=== PATIENT | female | born 1980 | race Caucasian/White ===

== ENCOUNTER 2019-01-02 16:13 | Inpatient (IN) | payer OTHER ==
[2019-01-02] MEDS: BELLADONNA/PHENOBARBITAL TAB PO (18:01)
[2019-01-02] MEDS: LIDOCAINE/MYLANTA 40 ML BTL PO (18:01)
[2019-01-02] MEDS: PYRIDOXINE 50 MG TAB PO (18:11)
[2019-01-02] MEDS: SOD CHLORIDE 0.9% 1,000 ML IV ×2 (18:12→20:51)
[2019-01-02 18:34] LABS: ADD MAN DIFF? NO
[2019-01-02 18:37] LABS: BASOPHILS % 0.2 % (0.0-2.0); HEMATOCRIT 33.2 % (37.0-47.0); HEMOGLOBIN 11.5 g/dl (12.0-16.0); LYMPHOCYTES # 1.1 10^3/ul (0.8-2.9); LYMPHOCYTES % 8.5 % (15.0-51.0); MEAN CORPUSCULAR HEMOGLOBIN 29.1 pg (29.0-33.0); MEAN CORPUSCULAR HGB CONC 34.6 g/dl (32.0-37.0); MEAN CORPUSCULAR VOLUME 84.1 fl (82.0-101.0); MEAN PLATELET VOLUME 11.6 fl (7.4-10.4); MONOCYTE # 0.5 10^3/ul (0.3-0.9); MONOCYTES % 4.3 % (0.0-11.0); NEUTROPHIL # 10.9 10^3/ul (1.6-7.5); NEUTROPHILS % 86.2 % (39.0-77.0); PLATELET COUNT 198 10^3/UL (140-415); RED BLOOD COUNT 3.95 10^6/ul (4.20-5.40); RED CELL DISTRIBUTION WIDTH 12.9 % (11.5-14.5)
[2019-01-02 18:37] LABS: WHITE BLOOD COUNT 12.6 10^3/ul (4.8-10.8)
[2019-01-02 18:46] LABS: ADD UMIC YES; UR ASCORBIC ACID NEGATIVE (NEGATIVE); UR BILIRUBIN (Dip) NEGATIVE (NEGATIVE); UR BLOOD (Dip) 2+ mg/dL (NEGATIVE); UR CLARITY SLIGHTLY CLOUDY (CLEAR); UR COLOR AMBER (YELLOW); UR GLUCOSE (Dip) 1+ mg/dL (NEGATIVE); UR KETONES (Dip) 2+ mg/dL (NEGATIVE); UR LEUKOCYTE ESTERASE (Dip) NEGATIVE Leu/ul (NEGATIVE); UR MUCUS MODERATE /HPF (NONE SEEN); UR NITRITE (Dip) NEGATIVE (NEGATIVE); UR RBC 54 /HPF (0-5); UR SQUAMOUS EPITHELIAL CELL FEW /HPF (FEW); UR TOTAL PROTEIN (Dip) 2+ mg/dl (NEGATIVE); UR UROBILINOGEN (Dip) NEGATIVE (NEGATIVE); UR WBC 5 /HPF (0-5)
[2019-01-02 18:59] LABS: ALANINE AMINOTRANSFERASE 43 IU/L (13-69); ALBUMIN 3.9 g/dl (3.3-4.9); ALBUMIN/GLOBULIN RATIO 1.05; ALKALINE PHOSPHATASE 35 IU/L (42-121); ANION GAP 11 (5-13); ASPARTATE AMINO TRANSFERASE 52 IU/L (15-46); BILIRUBIN,INDIRECT 0.4 mg/dl (0-1.1); BILIRUBIN,TOTAL 0.4 mg/dl (0.2-1.3); BLOOD UREA NITROGEN 8 mg/dl (7-20); CALCIUM 8.8 mg/dl (8.4-10.2); CARBON DIOXIDE 19 mmol/L (21-31); CHLORIDE 109 mmol/L (97-110); CREATININE 0.49 mg/dl (0.44-1.00); Estimated GFR > 60 mL/min (>60); GLUCOSE 139 mg/dl (70-220); LIPASE 27 U/L (23-300); POTASSIUM 3.8 mmol/L (3.5-5.1); SODIUM 139 mmol/L (135-144); TOTAL PROTEIN 7.6 g/dl (6.1-8.1)
[2019-01-02] MEDS ORDERED: ONDANSETRON 4 MG INJ IV (19:06)
[2019-01-02] MEDS: METOCLOPRAMIDE 10 MG INJ IV (19:40)
[2019-01-02] MEDS: FAMOTIDINE 20 MG INJ IV (20:55)
[2019-01-02] MEDS: AL HYDROX/MG HYDROX/SIMETH 30 ML CUP PO (22:02)
[2019-01-03] MEDS ORDERED: PROMETHAZINE (1.25 MG/ML) 5 ML CUP PO (01:30)
[2019-01-03] MEDS ORDERED: ONDANSETRON 4 MG INJ IV ×2 (01:30→18:00)
[2019-01-03] MEDS: METOCLOPRAMIDE 10 MG INJ IV ×4 (02:07→23:43)
[2019-01-03] MEDS: AL HYDROX/MG HYDROX/SIMETH 30 ML CUP PO ×2 (05:37→17:46)
[2019-01-03 05:48] LABS: ADD MAN DIFF? NO
[2019-01-03 05:52] LABS: BASOPHILS % 0.1 % (0.0-2.0); HEMOGLOBIN 10.6 g/dl (12.0-16.0); LYMPHOCYTES # 1.3 10^3/ul (0.8-2.9); LYMPHOCYTES % 9.5 % (15.0-51.0); MEAN CORPUSCULAR HEMOGLOBIN 29.1 pg (29.0-33.0); MEAN CORPUSCULAR HGB CONC 35.3 g/dl (32.0-37.0); MEAN CORPUSCULAR VOLUME 82.4 fl (82.0-101.0); MONOCYTE # 0.6 10^3/ul (0.3-0.9); MONOCYTES % 4.2 % (0.0-11.0); NEUTROPHIL # 12.1 10^3/ul (1.6-7.5); NEUTROPHILS % 85.6 % (39.0-77.0); PLATELET COUNT 216 10^3/UL (140-415); RED BLOOD COUNT 3.64 10^6/ul (4.20-5.40); RED CELL DISTRIBUTION WIDTH 13.1 % (11.5-14.5)
[2019-01-03 05:52] LABS: WHITE BLOOD COUNT 14.2 10^3/ul (4.8-10.8)
[2019-01-03 06:27] LABS: ALANINE AMINOTRANSFERASE 79 IU/L (13-69); ALBUMIN 3.5 g/dl (3.3-4.9); ALBUMIN/GLOBULIN RATIO 1.09; ALKALINE PHOSPHATASE 38 IU/L (42-121); ANION GAP 10 (5-13); ASPARTATE AMINO TRANSFERASE 92 IU/L (15-46); BILIRUBIN,INDIRECT 0.4 mg/dl (0-1.1); BILIRUBIN,TOTAL 0.4 mg/dl (0.2-1.3); BLOOD UREA NITROGEN 7 mg/dl (7-20); CALCIUM 8.6 mg/dl (8.4-10.2); CARBON DIOXIDE 18 mmol/L (21-31); CHLORIDE 108 mmol/L (97-110); CHOL/HDL RATIO 2.6 RATIO; CHOLESTEROL 183 mg/dl (100-200); CREATININE 0.49 mg/dl (0.44-1.00); Estimated GFR > 60 mL/min (>60); GLUCOSE 133 mg/dl (70-220); HDL CHOLESTEROL 70 mg/dl (34-82); LDL CHOLESTEROL,CALCULATED 96 mg/dl; MAGNESIUM 2.3 mg/dl (1.7-2.5); POTASSIUM 3.3 mmol/L (3.5-5.1); SODIUM 136 mmol/L (135-144); TOTAL PROTEIN 6.7 g/dl (6.1-8.1); TRIGLYCERIDES 84 mg/dl (0-149)
[2019-01-03 06:56] LABS: HEMOGLOBIN A1C 5.2 % (0-5.9)
[2019-01-03] MEDS: ACETAMINOPHEN 325 MG TAB PO (10:19)
[2019-01-03] MEDS: FAMOTIDINE 20 MG INJ IV ×2 (10:19→21:21)
[2019-01-03] MEDS: DEXTROSE 5%-0.45% NACL 1,000 ML IV (18:36)
[2019-01-03] MEDS: MULTIVITAMINS 10 ML, THIAMINE 100 MG, FOLIC ACID 1 MG in SOD CHLORIDE 0.9% 1,000 ML IVPB (20:46)
[2019-01-03] MEDS: PYRIDOXINE 50 MG TAB PO (22:00)
[2019-01-04 05:46] LABS: ADD MAN DIFF? NO; HAAIG REFLEX REFLEX FILED
[2019-01-04 05:47] LABS: BASOPHILS % 0.3 % (0.0-2.0); EOSINOPHILS % 0.1 % (0.0-7.0); HEMATOCRIT 29.7 % (37.0-47.0); HEMOGLOBIN 10.4 g/dl (12.0-16.0); LYMPHOCYTES # 1.6 10^3/ul (0.8-2.9); LYMPHOCYTES % 16.1 % (15.0-51.0); MEAN CORPUSCULAR HEMOGLOBIN 29.1 pg (29.0-33.0); MEAN CORPUSCULAR VOLUME 83.2 fl (82.0-101.0); MEAN PLATELET VOLUME 11.6 fl (7.4-10.4); MONOCYTE # 0.5 10^3/ul (0.3-0.9); MONOCYTES % 5.4 % (0.0-11.0); NEUTROPHIL # 7.4 10^3/ul (1.6-7.5); PLATELET COUNT 196 10^3/UL (140-415); RED BLOOD COUNT 3.57 10^6/ul (4.20-5.40); RED CELL DISTRIBUTION WIDTH 12.8 % (11.5-14.5)
[2019-01-04 05:47] LABS: WHITE BLOOD COUNT 9.7 10^3/ul (4.8-10.8)
[2019-01-04 06:26] LABS: PHOSPHORUS 2.2 mg/dl (2.5-4.9)
[2019-01-04 06:26] LABS: LIPASE 43 U/L (23-300); MAGNESIUM 2.2 mg/dl (1.7-2.5)
[2019-01-04 06:40] LABS: ALANINE AMINOTRANSFERASE 204 IU/L (13-69); ALBUMIN 3.2 g/dl (3.3-4.9); ALBUMIN/GLOBULIN RATIO 1.03; ALKALINE PHOSPHATASE 37 IU/L (42-121); ANION GAP 10 (5-13); ASPARTATE AMINO TRANSFERASE 161 IU/L (15-46); BILIRUBIN,INDIRECT 0.5 mg/dl (0-1.1); BILIRUBIN,TOTAL 0.5 mg/dl (0.2-1.3); BLOOD UREA NITROGEN 4 mg/dl (7-20); CALCIUM 7.9 mg/dl (8.4-10.2); CARBON DIOXIDE 19 mmol/L (21-31); CHLORIDE 105 mmol/L (97-110); CREATININE 0.43 mg/dl (0.44-1.00); Estimated GFR > 60 mL/min (>60); GLUCOSE 122 mg/dl (70-220); SODIUM 134 mmol/L (135-144); TOTAL PROTEIN 6.3 g/dl (6.1-8.1)
[2019-01-04 07:16] LABS: HEPATITIS B SURFACE ANTIGEN NEGATIVE (NEGATIVE)
[2019-01-04] MEDS: DEXTROSE 5%-0.45% NACL 1,000 ML IV ×2 (07:20→20:40)
[2019-01-04 07:34] LABS: HEPATITIS B CORE ANTIBODY NEGATIVE (NEGATIVE); HEPATITIS C VIRAL ANTIBODY NEGATIVE (NEGATIVE)
[2019-01-04] MEDS: FAMOTIDINE 20 MG INJ IV ×2 (08:52→21:47)
[2019-01-04] MEDS: PYRIDOXINE 50 MG TAB PO (08:52)
[2019-01-04] MEDS: MULTIVITAMINS 10 ML, THIAMINE 100 MG, FOLIC ACID 1 MG in SOD CHLORIDE 0.9% 1,000 ML IVPB (08:53)
[2019-01-04] MEDS: PROCHLORPERAZINE 10 MG INJ IM ×2 (13:51→21:51)
[2019-01-04] MEDS ORDERED: BISACODYL (EC) 5 MG TAB PO (15:00)
[2019-01-04] MEDS ORDERED: DOCUSATE SODIUM 100 MG CAP PO (15:00)
[2019-01-04] MEDS: POTASSIUM CHLORIDE 100 ML IVPB (17:29)
[2019-01-05] MEDS: DEXTROSE 5%-0.45% NACL 1,000 ML IV ×2 (02:41→23:20)
[2019-01-05 05:44] LABS: ADD MAN DIFF? NO
[2019-01-05 05:47] LABS: WHITE BLOOD COUNT 11.6 10^3/ul (4.8-10.8)
[2019-01-05 05:47] LABS: BASOPHILS % 0.3 % (0.0-2.0); EOSINOPHILS % 0.2 % (0.0-7.0); HEMATOCRIT 35.1 % (37.0-47.0); HEMOGLOBIN 12.4 g/dl (12.0-16.0); LYMPHOCYTES # 2.3 10^3/ul (0.8-2.9); LYMPHOCYTES % 20.1 % (15.0-51.0); MEAN CORPUSCULAR HEMOGLOBIN 28.5 pg (29.0-33.0); MEAN CORPUSCULAR HGB CONC 35.3 g/dl (32.0-37.0); MEAN CORPUSCULAR VOLUME 80.7 fl (82.0-101.0); MEAN PLATELET VOLUME 11.8 fl (7.4-10.4); MONOCYTE # 0.6 10^3/ul (0.3-0.9); MONOCYTES % 5.1 % (0.0-11.0); NEUTROPHIL # 8.5 10^3/ul (1.6-7.5); NEUTROPHILS % 73.4 % (39.0-77.0); PLATELET COUNT 254 10^3/UL (140-415); RED BLOOD COUNT 4.35 10^6/ul (4.20-5.40)
[2019-01-05] MEDS: PROCHLORPERAZINE 10 MG INJ IM ×3 (05:55→22:23)
[2019-01-05 06:17] LABS: ALANINE AMINOTRANSFERASE 444 IU/L (13-69); ALBUMIN 3.7 g/dl (3.3-4.9); ALBUMIN/GLOBULIN RATIO 1.02; ALKALINE PHOSPHATASE 51 IU/L (42-121); ANION GAP 12 (5-13); ASPARTATE AMINO TRANSFERASE 272 IU/L (15-46); BILIRUBIN,INDIRECT 0.5 mg/dl (0-1.1); BILIRUBIN,TOTAL 0.5 mg/dl (0.2-1.3); BLOOD UREA NITROGEN 5 mg/dl (7-20); CALCIUM 8.3 mg/dl (8.4-10.2); CARBON DIOXIDE 17 mmol/L (21-31); CHLORIDE 106 mmol/L (97-110); CREATININE 0.54 mg/dl (0.44-1.00); Estimated GFR > 60 mL/min (>60); GLUCOSE 114 mg/dl (70-220); SODIUM 135 mmol/L (135-144); TOTAL PROTEIN 7.3 g/dl (6.1-8.1)
[2019-01-05 06:41] LABS: POTASSIUM 3.1 mmol/L (3.5-5.1)
[2019-01-05 07:28] LABS: MAGNESIUM 2.1 mg/dl (1.7-2.5)
[2019-01-05 07:28] LABS: LIPASE 72 U/L (23-300)
[2019-01-05] MEDS: FAMOTIDINE 20 MG INJ IV (08:32)
[2019-01-05] MEDS: PYRIDOXINE 50 MG TAB PO (08:32)
[2019-01-05] MEDS: MULTIVITAMINS 10 ML, THIAMINE 100 MG, FOLIC ACID 1 MG in SOD CHLORIDE 0.9% 1,000 ML IVPB (08:33)
[2019-01-05] MEDS: METOCLOPRAMIDE 10 MG INJ IV ×2 (14:00→17:52)
[2019-01-05] MEDS: SUCRALFATE (100 MG/ML) 10ML CUP PO ×2 (17:52→21:00)
[2019-01-05] MEDS: POTASSIUM CHLORIDE 20 MEQ POWDER FOR ORAL SOLN PO ×2 (17:56→21:00)
[2019-01-05 19:41] LABS: HEPATITIS B SURFACE ANTIGEN NEGATIVE (NEGATIVE)
[2019-01-05 19:58] LABS: HEPATITIS C VIRAL ANTIBODY NEGATIVE (NEGATIVE)
[2019-01-05 19:58] LABS: HEPATITIS B SURFACE ANTIBODY NEGATIVE (NEGATIVE)
[2019-01-05] MEDS: FAMOTIDINE 20 MG TAB PO (21:00)
[2019-01-06] MEDS: METOCLOPRAMIDE 10 MG INJ IV ×4 (00:14→17:13)
[2019-01-06] MEDS: DEXTROSE 5%-0.45% NACL 1,000 ML IV ×2 (02:01→11:46)
[2019-01-06] MEDS: PANTOPRAZOLE (EC) 40 MG TAB PO (03:44)
[2019-01-06 05:18] LABS: ADD MAN DIFF? NO
[2019-01-06 05:23] LABS: BASOPHILS % 0.3 % (0.0-2.0); EOSINOPHILS % 0.4 % (0.0-7.0); HEMATOCRIT 31.6 % (37.0-47.0); HEMOGLOBIN 11.3 g/dl (12.0-16.0); LYMPHOCYTES # 1.6 10^3/ul (0.8-2.9); LYMPHOCYTES % 20.1 % (15.0-51.0); MEAN CORPUSCULAR HEMOGLOBIN 28.6 pg (29.0-33.0); MEAN CORPUSCULAR HGB CONC 35.8 g/dl (32.0-37.0); MEAN PLATELET VOLUME 11.6 fl (7.4-10.4); MONOCYTE # 0.4 10^3/ul (0.3-0.9); MONOCYTES % 5.6 % (0.0-11.0); NEUTROPHIL # 5.7 10^3/ul (1.6-7.5); PLATELET COUNT 190 10^3/UL (140-415); RED BLOOD COUNT 3.95 10^6/ul (4.20-5.40); RED CELL DISTRIBUTION WIDTH 12.9 % (11.5-14.5)
[2019-01-06 05:23] LABS: WHITE BLOOD COUNT 7.8 10^3/ul (4.8-10.8)
[2019-01-06] MEDS: PROCHLORPERAZINE 10 MG INJ IM ×2 (06:08→14:00)
[2019-01-06 06:09] LABS: ALANINE AMINOTRANSFERASE 447 IU/L (13-69); ALBUMIN 3.1 g/dl (3.3-4.9); ALKALINE PHOSPHATASE 42 IU/L (42-121); ANION GAP 10 (5-13); ASPARTATE AMINO TRANSFERASE 205 IU/L (15-46); BILIRUBIN,INDIRECT 0.4 mg/dl (0-1.1); BILIRUBIN,TOTAL 0.4 mg/dl (0.2-1.3); BLOOD UREA NITROGEN 4 mg/dl (7-20); CALCIUM 7.8 mg/dl (8.4-10.2); CARBON DIOXIDE 20 mmol/L (21-31); CHLORIDE 105 mmol/L (97-110); CREATININE 0.43 mg/dl (0.44-1.00); Estimated GFR > 60 mL/min (>60); GLUCOSE 115 mg/dl (70-220); SODIUM 135 mmol/L (135-144); TOTAL PROTEIN 6.2 g/dl (6.1-8.1)
[2019-01-06 06:21] LABS: POTASSIUM 2.8 mmol/L (3.5-5.1)
[2019-01-06] MEDS ORDERED: POTASSIUM CHLORIDE 100 ML IVPB (07:00)
[2019-01-06] MEDS: PYRIDOXINE 50 MG TAB PO (09:00)
[2019-01-06] MEDS: FAMOTIDINE 20 MG TAB PO ×2 (09:00→22:07)
[2019-01-06] MEDS: SUCRALFATE (100 MG/ML) 10ML CUP PO ×4 (09:00→22:33)
[2019-01-06] MEDS: MULTIVITAMINS 10 ML, THIAMINE 100 MG, FOLIC ACID 1 MG in SOD CHLORIDE 0.9% 1,000 ML IVPB (09:13)
[2019-01-06] MEDS: POTASSIUM CHLORIDE (SR) 20 MEQ TAB PO ×3 (09:41→22:33)
[2019-01-06 19:40] LABS: POTASSIUM 3.9 mmol/L (3.5-5.1)
[2019-01-06] MEDS: LABETALOL 100 MG TAB PO (21:00)
[2019-01-06] MEDS: D5W-0.45 NACL + KCL 40 MEQ 1,000 ML IV (22:28)
[2019-01-07] MEDS: METOCLOPRAMIDE 10 MG INJ IV ×2 (00:39→05:53)
[2019-01-07 05:50] LABS: ADD MAN DIFF? NO
[2019-01-07 05:52] LABS: BASOPHILS % 0.3 % (0.0-2.0); EOSINOPHILS # 0.1 10^3/ul (0.0-0.5); EOSINOPHILS % 0.8 % (0.0-7.0); HEMATOCRIT 35.9 % (37.0-47.0); HEMOGLOBIN 12.5 g/dl (12.0-16.0); LYMPHOCYTES # 2.4 10^3/ul (0.8-2.9); LYMPHOCYTES % 24.5 % (15.0-51.0); MEAN CORPUSCULAR HEMOGLOBIN 28.7 pg (29.0-33.0); MEAN CORPUSCULAR HGB CONC 34.8 g/dl (32.0-37.0); MEAN CORPUSCULAR VOLUME 82.5 fl (82.0-101.0); MEAN PLATELET VOLUME 11.5 fl (7.4-10.4); MONOCYTE # 0.6 10^3/ul (0.3-0.9); MONOCYTES % 5.7 % (0.0-11.0); NEUTROPHIL # 6.6 10^3/ul (1.6-7.5); PLATELET COUNT 230 10^3/UL (140-415); RED BLOOD COUNT 4.35 10^6/ul (4.20-5.40); RED CELL DISTRIBUTION WIDTH 13.2 % (11.5-14.5)
[2019-01-07 05:52] LABS: WHITE BLOOD COUNT 9.7 10^3/ul (4.8-10.8)
[2019-01-07 06:34] LABS: ALANINE AMINOTRANSFERASE 504 IU/L (13-69); ALBUMIN 3.7 g/dl (3.3-4.9); ALKALINE PHOSPHATASE 57 IU/L (42-121); ANION GAP 12 (5-13); ASPARTATE AMINO TRANSFERASE 171 IU/L (15-46); BILIRUBIN,INDIRECT 0.5 mg/dl (0-1.1); BILIRUBIN,TOTAL 0.5 mg/dl (0.2-1.3); BLOOD UREA NITROGEN 2 mg/dl (7-20); CALCIUM 8.8 mg/dl (8.4-10.2); CARBON DIOXIDE 19 mmol/L (21-31); CHLORIDE 106 mmol/L (97-110); CREATININE 0.46 mg/dl (0.44-1.00); Estimated GFR > 60 mL/min (>60); GLUCOSE 116 mg/dl (70-220); SODIUM 137 mmol/L (135-144); TOTAL PROTEIN 7.4 g/dl (6.1-8.1)
[2019-01-07] MEDS: LABETALOL 100 MG TAB PO ×3 (09:00→22:39)
[2019-01-07] MEDS: POTASSIUM CHLORIDE (SR) 20 MEQ TAB PO ×3 (11:14→22:37)
[2019-01-07] MEDS: SUCRALFATE (100 MG/ML) 10ML CUP PO ×4 (11:14→21:20)
[2019-01-07] MEDS: PYRIDOXINE 50 MG TAB PO (11:16)
[2019-01-07] MEDS: FAMOTIDINE 20 MG TAB PO ×2 (11:16→21:20)
[2019-01-07] MEDS ORDERED: METOCLOPRAMIDE 10 MG INJ IV (12:00)
[2019-01-07] MEDS: NACL 0.9% 3 ML SYG IV (13:51)
[2019-01-07 14:05] LABS: AMMONIA < 9 umol/l (9-30)
[2019-01-07 14:05] LABS: PROTIME 12.3 Sec (11.9-14.9)
[2019-01-07] MEDS: D5W-0.45 NACL + KCL 40 MEQ 1,000 ML IV (16:30)
[2019-01-07] MEDS ORDERED: METOCLOPRAMIDE 5 MG TAB PO (17:30)
[2019-01-08 06:13] LABS: ALANINE AMINOTRANSFERASE 414 IU/L (13-69); ALBUMIN 3.6 g/dl (3.3-4.9); ALBUMIN/GLOBULIN RATIO 1.09; ALKALINE PHOSPHATASE 49 IU/L (42-121); ANION GAP 9 (5-13); ASPARTATE AMINO TRANSFERASE 127 IU/L (15-46); BILIRUBIN,INDIRECT 0.5 mg/dl (0-1.1); BILIRUBIN,TOTAL 0.5 mg/dl (0.2-1.3); BLOOD UREA NITROGEN 3 mg/dl (7-20); CALCIUM 9.4 mg/dl (8.4-10.2); CARBON DIOXIDE 20 mmol/L (21-31); CHLORIDE 106 mmol/L (97-110); CREATININE 0.45 mg/dl (0.44-1.00); Estimated GFR > 60 mL/min (>60); GLUCOSE 107 mg/dl (70-220); POTASSIUM 4.6 mmol/L (3.5-5.1); SODIUM 135 mmol/L (135-144); TOTAL PROTEIN 6.9 g/dl (6.1-8.1)
[2019-01-08] MEDS: SUCRALFATE (100 MG/ML) 10ML CUP PO ×2 (09:47→15:20)
[2019-01-08] MEDS: FAMOTIDINE 20 MG TAB PO (09:48)
[2019-01-08] MEDS: POTASSIUM CHLORIDE (SR) 20 MEQ TAB PO ×2 (09:48→15:20)
[2019-01-08] MEDS: PYRIDOXINE 50 MG TAB PO (09:48)
[2019-01-08] MEDS: LABETALOL 100 MG TAB PO (09:57)
[2019-01-08 14:27] LABS: ANA SCREEN NEGATIVE (NEGATIVE)
[2019-01-09 12:07] LABS: MITOCHONDRIAL TB NEGATIVE (NEGATIVE); SMOOTH MUSCLE AB SCREEN NEGATIVE (NEGATIVE)
== END 2019-01-08 18:05 | disposition home or self-care (01) | DRG 832 ==
LOC: E/R 16:13 → 2NE 19:22
DX: O21.0 Mild hyperemesis gravidarum (principal); K92.0 Hematemesis; O20.9 Hemorrhage in early pregnancy, unspecified; Z3A.11 11 weeks gestation of pregnancy; D64.9 Anemia, unspecified; K80.20 Calculus of gallbladder without cholecystitis without obstruction; E87.6 Hypokalemia; O26.891 Other specified pregnancy related conditions, first trimester; K21.9 Gastro-esophageal reflux disease without esophagitis
CPT/HCPCS: 36415; 76700; 76801; 80053; 80061; 81001; 81025; 82140; 83036; 83690; 83735; 84100; 84132; 84443; 85025; 85610; 86038; 86255; 86704; 86706; 86708; 86709; 86803; 86900; 86901; 87086; 87338; 87340; 99285-25

== ENCOUNTER 2019-01-29 12:03 | Emergency (ER) | payer OTHER ==
[2019-01-29] MEDS: DEXTROSE 5%-0.45% NACL 1,000 ML IV (13:22)
[2019-01-29] MEDS: METOCLOPRAMIDE 10 MG INJ IV (13:22)
[2019-01-29 13:30] LABS: ADD MAN DIFF? NO
[2019-01-29 13:33] LABS: BASOPHILS % 0.3 % (0.0-2.0); EOSINOPHILS % 0.3 % (0.0-7.0); HEMATOCRIT 37.2 % (37.0-47.0); HEMOGLOBIN 12.5 g/dl (12.0-16.0); LYMPHOCYTES # 1.9 10^3/ul (0.8-2.9); LYMPHOCYTES % 25.8 % (15.0-51.0); MEAN CORPUSCULAR HGB CONC 33.6 g/dl (32.0-37.0); MEAN CORPUSCULAR VOLUME 86.3 fl (82.0-101.0); MEAN PLATELET VOLUME 11.2 fl (7.4-10.4); MONOCYTE # 0.5 10^3/ul (0.3-0.9); MONOCYTES % 6.5 % (0.0-11.0); NEUTROPHIL # 4.8 10^3/ul (1.6-7.5); NEUTROPHILS % 66.8 % (39.0-77.0); PLATELET COUNT 196 10^3/UL (140-415); RED BLOOD COUNT 4.31 10^6/ul (4.20-5.40); RED CELL DISTRIBUTION WIDTH 13.8 % (11.5-14.5)
[2019-01-29 13:33] LABS: WHITE BLOOD COUNT 7.2 10^3/ul (4.8-10.8)
[2019-01-29 13:49] LABS: ALANINE AMINOTRANSFERASE 433 IU/L (13-69); ALBUMIN 3.7 g/dl (3.3-4.9); ALBUMIN/GLOBULIN RATIO 0.97; ALKALINE PHOSPHATASE 60 IU/L (42-121); ANION GAP 11 (5-13); ASPARTATE AMINO TRANSFERASE 248 IU/L (15-46); BILIRUBIN,INDIRECT 0.6 mg/dl (0-1.1); BILIRUBIN,TOTAL 0.6 mg/dl (0.2-1.3); BLOOD UREA NITROGEN 6 mg/dl (7-20); CALCIUM 9.6 mg/dl (8.4-10.2); CARBON DIOXIDE 20 mmol/L (21-31); CHLORIDE 102 mmol/L (97-110); CREATININE 0.45 mg/dl (0.44-1.00); Estimated GFR > 60 mL/min (>60); GLUCOSE 96 mg/dl (70-220); LIPASE 56 U/L (23-300); POTASSIUM 3.7 mmol/L (3.5-5.1); SODIUM 133 mmol/L (135-144); TOTAL PROTEIN 7.5 g/dl (6.1-8.1)
== END 2019-01-29 16:16 | disposition home or self-care (01) ==
LOC: FTE 12:03
DX: O21.9 Vomiting of pregnancy, unspecified (principal); Z3A.13 13 weeks gestation of pregnancy
CPT/HCPCS: 36415; 80053; 83690; 85025; 96374; 99284-25